=== PATIENT | female | born 1940 | race Caucasian/White ===

== ENCOUNTER → 2017-11-19 | Outpatient (CLI) | payer OTHER | LOC: M.CT 10-29 10:00 → M.LAB 10-29 10:00 → M.CT 10-29 11:00 | DX: K76.0 Fatty (change of) liver, not elsewhere classified (principal); K44.9 Diaphragmatic hernia without obstruction or gangrene; N39.0 Urinary tract infection, site not specified; Z90.49 Acquired absence of other specified parts of digestive tract ==